=== PATIENT | male | born 1960 | race African-American/Black ===

== ENCOUNTER → 2016-09-03 | Outpatient (CLI) | payer OTHER ==
--- NOTE | 2016-09-03 17:18 | RAD ---
Lumbar spine, 2 views, 09/03/2016: History: Low back pain The lumbar vertebral heights are well-maintained. The intervertebral disc spaces are well preserved. There are mild scattered marginal spurs. There are mild degenerative changes involving the facet joints in the lower lumbar spine. Aortoiliac calcific plaquing is present. IMPRESSION: 1. Mild scattered degenerative changes. 2. No acute abnormality is detected.
--- NOTE | 2016-09-03 17:21 | RAD ---
Right hip, 2 views, 09/03/2016: History: Fall, pain, previous surgery There is a plate with wires and screws in place related to the proximal femur shaft extending into the femoral neck transfixing an old healed fracture. There is mild medial displacement of an old lesser trochanteric fracture fragment. No acute fracture or dislocation is identified. There is mild narrowing of the right hip joint with mild marginal spurring. There are moderate degenerative changes at the symphysis pubis. Arterial calcifications are evident in the thigh. IMPRESSION: 1. Postsurgical and degenerative changes as described above. 2. No acute bony abnormality is detected.
== END | disposition home or self-care (01) ==
LOC: RAD 10:59
PROVIDERS: ATTEND Surgery
DX: M54.9 Dorsalgia, unspecified (principal)
CPT/HCPCS: 72100; 73502